=== PATIENT | male | born 1995 ===

== ENCOUNTER 2018-07-08 16:00 | Emergency (ER) | payer OTHER ==
[2018-07-08 16:06] VITALS: BP 131/83; PULSE 73; RESP 16; TEMP 98.5; O2SAT 100
[2018-07-08] MEDS ORDERED: Dexamethasone 4 mg/1 ml IM STA (16:29)
[2018-07-08] MEDS ORDERED: Amoxicillin-Clav 500-125 mg Tab PO STA (16:29)
--- NOTE | 2018-07-08 16:51 | ED PDOC ---
HPI: CCC, URI, Sore Throat History Per: Patient, Underliner ([place] #[id number]) Additional Complaint(s): Sore throat x 1 day. Reports feeling a swelling in the back of his throat. States he has not used any meds at home to help relieve symptoms. Denies fever, SOB, chest pain, rash, abdominal pain, cough, congestion, sick contacts, recent travel. <Edmar Taylor E - Last Filed: 07/08/18 16:49> <Lucinda Dutta - Last Filed: 07/09/18 00:02> Time Seen by Provider: 07/08/18 16:18 Chief Complaint (Nursing): ENT Problem Supervising Attending Note - Attestation: I have personally seen and examined this patient.: No I have reviewed all pertinent clinical information, including history, physical exam and plan: Yes <Lucinda Dutta - Last Filed: 07/09/18 00:02> Past Medical History Reviewed: Historical Data, Nursing Documentation, Vital Signs Vital Signs: Last Vital Signs Temp 98.5 F 07/08/18 16:04 Pulse 73 07/08/18 16:04 Resp 16 07/08/18 16:04 BP 131/83 07/08/18 16:04 Pulse Ox 100 07/08/18 16:04 - Surgical History Surgical History: No Surg Hx - Family History Family History: States: No Known Family Hx <Edmar Taylor - Last Filed: 07/08/18 16:49> Vital Signs: Last Vital Signs Temp 98.5 F 07/08/18 16:04 Pulse 73 07/08/18 16:04 Resp 16 07/08/18 16:04 BP 131/83 07/08/18 16:04 Pulse Ox 100 07/08/18 17:16 <Lucinda Dutta F - Last Filed: 07/09/18 00:02> - Home Medications Home Medications: Ambulatory Orders Medication Instructions Recorded Amoxicillin/Clavulanate [Augmentin 1 tab PO BID #19 tab 07/08/18 500 MG-125 MG] RX: Ibuprofen [Motrin Tab] 600 mg PO Q6 PRN #16 tab 07/08/18 - Allergies Allergies/Adverse Reactions: Allergies Allergy/AdvReac Type Severity Reaction Status Date / Time No Known Allergies Allergy Verified 07/08/18 16:03 Review of Systems ROS Statement: Except As Marked, All Systems Reviewed And Found Negative ENT: Positive for: Throat Pain, Throat Swelling <Edmar Taylor - Last Filed: 07/08/18 16:49> Physical Exam - Physical Exam Appears: Positive for: Well, Non-toxic, No Acute Distress Skin: Positive for: Normal Color, Warm. Negative for: Rash Eye Exam: Positive for: Normal appearance, EOMI, PERRL ENT: Positive for: TM Is/Are (non-erythematous, non-bulging b/l), Other (uvula is erythematous and edematous; airway is patent; no drooling; no trismus). Negative for: Pharyngeal Erythema, Tonsillar Exudate, Tonsillar Swelling Neck: Positive for: Normal, Painless ROM Cardiovascular/Chest: Positive for: Regular Rate, Rhythm Respiratory: Positive for: Normal Breath Sounds. Negative for: Stridor, Respiratory Distress Gastrointestinal/Abdominal: Positive for: Normal Exam, Soft. Negative for: Tenderness Back: Positive for: Normal Inspection. Negative for: L CVA Tenderness, R CVA Tenderness Neurologic/Psych: Positive for: Alert, Oriented (x3) <Edmar Taylor - Last Filed: 07/08/18 16:49> - ECG O2 Sat by Pulse Oximetry: 100 - Progress ED Course And Treament: Decadron 10mg IM, augmentin PO, ibuprofen 600mg PO, throat culture sent. <Edmar Taylor - Last Filed: 07/08/18 16:49> Disposition - Patient ED Disposition Is Patient to be Admitted: No - Disposition Disposition: Routine/Home Disposition Time: 16:30 <Edmar Taylor - Last Filed: 07/08/18 16:49> <Lucinda Dutta - Last Filed: 07/09/18 00:02> - Clinical Impression Clinical Impression: Uvulitis - Disposition Referrals: [facility] [Outside] [facility] [Outside] Condition: IMPROVED Additional Instructions: RADHA MICHAUD, thank you for letting us take care of you today. Your provider was Lucinda Dutta MD and you were treated for THROAT PAIN. The emergency medical care you received today was directed at your acute symptoms. If you were prescribed any medication, please fill it and take as directed. It may take several days for your symptoms to resolve. Return to the Emergency Department if your symptoms worsen, do not improve, or if you have any other problems. Please contact your doctor or call one of the physicians/clinics you have been referred to that are listed on the Patient Visit Information form that is included in your discharge packet. Bring any paperwork you were given at discharge with you along with any medications you are taking to your follow up visit. Our treatment cannot replace ongoing medical care by a primary care provider outside of the emergency department. Thank you for allowing the [facility] team to be part of your care today. If you had an X-Ray or CT scan: A Radiologist will review the ED reading if any change in treatment is needed we will contact you. If you had a blood, urine, or wound culture: It will take several days for the results, if any change in treatment is needed we will contact you. If you had an STI test: It will take 48 hours for the results. Please call after 1 week if you have not heard back. Prescriptions: Amoxicillin/Clavulanate [Augmentin 500 MG-125 MG] 1 tab PO BID #19 tab RX: Ibuprofen [Motrin Tab] 600 mg PO Q6 PRN #16 tab PRN Reason: Pain or fever Instructions: Sore Throat, Adult (DC) Forms: [employer] (Chilean)
== END 2018-07-08 17:08 | disposition home or self-care (01) ==
LOC: H.ER 16:00
DX: K12.2 Cellulitis and abscess of mouth (principal)
CPT/HCPCS: 87070; 96372; 99283; J1100